=== PATIENT | female | born 1960 | race Caucasian/White ===

== ENCOUNTER 2018-06-21 09:02 | Outpatient (CLI) | payer OTHER, SELFPAY ==
--- NOTE | 2018-06-21 12:55 | W.PREOPHP ---
Date of service: 06/21/18 Assessment and Plan (1) Biceps tendinitis of right shoulder: Current visit: Yes Status: Acute Since Stephanie has failed conservative treatment, she would like to move forward with right shoulder surgery. Likely this will be a biceps tenotomy, as this is discussed with patient versus a tenodesis. She would like to have her downtime at a minimum. There is a possibility of a rotator cuff repair, which will be determined at the time of surgery as far as the extent of the tearing is. Details of surgery were discussed with patient as well as risks, and pertinent anatomy. All questions were answered. (2) Rotator cuff tear, right: Current visit: Yes Status: Acute History of Present Illness Chief Complaint: Right shoulder pain Narrative: Stephanie is a 57-year-old female has been complaining of right shoulder pain for some time now. She states that she has tried conservative measures including physical therapy, but they have not help take care of her pain. 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 Most of her pain occurs not when she reaches for something, but when she retracts her hand from a reaching position. She also states that she has pain whenever she is lifting anything with her hand supinated. She states that when she is transferring her , she does so attempting to lift with her hand supinated and she feels not only pain but some weakness associated with it. She has had an intra-articular injection which helped significantly, but only for a couple of days. Subsequent MRI reveals possibility of a small supraspinatus tear, as well as biceps tendinitis. Since she has failed conservative treatment, care is looking forward to right shoulder arthroscopy with biceps tenotomy. Pertinent Surgical Information Patient denies history of CVA, [place], angina, asthma, COPD, renal or liver disorders, hepatitis, bleeding disorders, diabetes, immune or thyroid disorders. Patient does report presence of a heart murmur. She states that this was diagnosed about 10 years ago, however she had an echocardiogram which she states was normal. She has not had any symptoms from the heart murmur. No dizziness, chest pain, shortness of breath. No complications from anesthesia. Review of Systems Constitutional Denies fever(s) ENT Denies dizziness and Denies sore throat Cardiovascular Denies chest pain, Denies palpitations and Denies dyspnea Respiratory Denies dyspnea Gastrointestinal Denies abdominal pain, Denies melena, Denies hematochezia, Denies diarrhea, Denies nausea and Denies vomiting Genitourinary Denies hematuria and Denies dysuria Neurologic Denies dizziness Endocrine Denies palpitations PFSH Family History Mother Essential hypertension CAD (coronary artery disease) Father CAD (coronary artery disease) Medical History Hyperlipidemia (Acute) Essential hypertension (Acute 07/18/13) Depressive disorder (Acute) Social History Smoking/Tobacco Use Status: Never Surgical History Acromioplasty (07/03/14) Endometrial Ablation Meds Home Medications Medication Instructions Recorded Confirmed Type cholecalciferol (vitamin D3) 1,000 unit PO DAILY 11/07/15 06/21/18 History Atorvastatin Calcium 20 mg PO DAILY #90 tab-cap 04/09/17 06/21/18 Clinic gabapentin 900 mg PO HS #140 tab 06/16/17 06/21/18 Rx escitalopram oxalate [Lexapro] 20 mg PO DAILY #90 tab-cap 11/25/17 06/21/18 Rx hydrochlorothiazide 12.5 mg PO DAILY #90 tab-cap 05/11/18 06/21/18 Rx Allergies Allergy/AdvReac Type Severity Reaction Status Date / Time tree nut Allergy Swelling/Edema, Unverified 06/21/18 09:28 tongue, mouth Exam [facility] Head: normocephalic and atraumatic General nose exam: no nasal discharge Throat: uvula midline and no uvular edema Other: soft palate rises symmetrically, no erythema Eyes Conjunctivae: conjunctivae normal Sclera: sclerae normal Pupils: PERRL Resp Effort & Inspection: normal respiratory effort Auscultation: clear to auscultation bilaterally and no wheezes Cardio Rate: regular rate Rhythm: regular rhythm Heart Sounds: S1 normal, S2 normal and murmur systolic
== END 2018-06-21 09:22 ==
PROVIDERS: PCP Nurse Practitioner Family; Visit Provider Student in an Organized Health Care Education/Training Program
DX: M75.111 Incomplete rotator cuff tear or rupture of right shoulder, not specified as traumatic (principal); M75.21 Bicipital tendinitis, right shoulder; Z01.818 Encounter for other preprocedural examination
CPT/HCPCS: NC

== ENCOUNTER 2018-07-13 07:49 | Day surgery (SDC) | payer OTHER, SELFPAY ==
[2018-07-13] VITALS (7 sets, daily range): BP systolic 139–150; BP diastolic 57–77; PULSE 75–90; RESP 15–19; TEMP 35.6–36.7; O2SAT 95–98
[2018-07-13] MEDS: Lactated Ringers 1,000 ML 80 ML IV ×2 (08:20→11:01)
--- NOTE | 2018-07-13 09:31 | W.PM.DSUDISC ---
Discharge Plan Disposition Patient Disposition: HOME Condition: Good Discharge Details Reason For Visit: Right shoulder arthroscopy Attending Provider: Bowen Laird Primary Care Provider: Clover Hernandes Home Meds and New Rx's Prescriptions: New ibuprofen 600 mg tablet 600 mg PO TID PRNQty: 90 RF: 3 acetaminophen 500 mg capsule 1,000 mg PO Q8H PRN (Reason: pain) Qty: 90 RF: 0 oxycodone 5 mg tablet 5 mg PO Q4H Qty: 15 RF: 0 Continue Atorvastatin Calcium 20 MG tablet 20 mg PO DAILY Qty: 90 RF: 4 gabapentin 600 MG tablet 900 mg PO HS Qty: 140 RF: 4 escitalopram oxalate [Lexapro] 20 MG tablet 20 mg PO DAILY Qty: 90 RF: 3 hydrochlorothiazide 12.5 MG tablet 12.5 mg PO DAILY Qty: 90 RF: 4 amoxicillin-pot clavulanate 875-125 mg tablet 1 tab PO BID Qty: 14 RF: 0 cholecalciferol (vitamin D3) 1,000 UNITS tablet 1,000 unit PO DAILY RF: 0 Discharge Instructions Stand Alone Forms: Hany GRACE)Eitan Shoulder Arthro Equipment/Supplies: Sling Activity:: Activity as Tolerated Remove Dressings/Wound Care:: 72 hours Shower/Bathe:: 72 hours Diet:: As Tolerated Discharge Orders Discharge Orders: Discharge Order (Routine); Ordered 07/13/18 Ordered By: Bowen Laird DS: Diagnosis Discharge Diagnosis (1) Rotator cuff tear, right: Status: Acute (2) Biceps tendinitis of right shoulder: Status: Acute
[2018-07-13] MEDS: Bupivacaine LIPOSOME/PF 133 MG/10 ML VIAL IJ ×2 (09:35→11:08)
[2018-07-13] MEDS: Bupivacaine 0.25% Pres-Free 30 ML VIAL (11:09)
--- NOTE | 2018-07-13 12:21 | ROE_ITS ---
Date of service: 07/13/18 Time of Service: 12:16 Operative Note DATE OF PROCEDURE: 07/13/18 PRE-OP DIAGNOSIS: Right biceps tendinitis, SLAP tear, rotator cuff tendinitis, subacromial im POST-OP DIAGNOSIS: same PROCEDURE: - Extensive debridement of anterior and posterior glenohumeral joint and rotator cuff - Biceps tenotomy - Subacromial Debridement with Acromioplasty SURGEON: Bowen Laird PROGRAM MEDICAL DIRECTOR: Ajit Manuel ANESTHESIA: GETA and regional ESTIMATED BLOOD LOSS: 0 PATHOLOGY: none sent COMPLICATIONS: None Patient was transported to: PACU Patient's condition: stable Indications: I have seen Stephanie in clinic for a painful shoulder. Pathology was confirmed based on MRI and exam findings. Nonoperative measures were exhausted but disability and pain persisted. I discussed shoulder arthroscopy and procedures. I reviewed the risks of the procedures to include, but not limited to, bleeding, infection, pain, stiffness, damage to nerves or vessels, recurrence, hardware failure, blood clot. Despite these risks, the patient elected to proceed. Findings: A diagnostic arthroscopy was performed with the following findings: - Glenohumeral Joint: No significant chondromalacia - Labrum: Severe fraying of the labrum seen from posterior to anterior superiorly. This involved the biceps anchor. - Cuff: Some mild inflammatory changes seen on both the articular and bursal sides. - Biceps: Severe inflammatory changes seen along its course with some partial tearing and tearing at the anchor. - Subacromial: Significant inflammation, intact rotator cuff, downward sloping anterolateral spur Procedure Description: Ernestina greeted in the preoperative holding area where the correct side was identified and marked. The consent was reviewed with the patient and signed. The history and physical was updated. All questions were answered. Stephanie was taken back to the PACU for administration of an intrascalene nerve block. Stephanie was then taken to the operating room. The patient was placed into the supine position on the operating room table. A general anesthetic was administered. Stephanie was then positioned in the beach chair position. All bony prominences were well padded. The head was placed in a foam home visitor home base head start in a neutral position. Prophylactic antibiotics in the form of cefazolin were administered. The right arm/shoulder was then prepped with Chloraprep and draped in a standard fashion with stockinette and shoulder drape. A timeout to confirm correct identity, side and site, procedure, allergies, anesthesia, and medical concerns was performed. The arm was placed into a pneumatic ziegler, SPIDER2. The shoulder arthroscopy was then performed. The glenohumeral joint was injected with 20 cc of normal saline with good flow back. A standard posterior portal was made and the joint was entered atraumatically with a blunt arthroscope. Once inside we had good visualization of the structures of the glenohumeral joint. An anterior portal was established with spinal needle localization. A 6.5 mm cannula was inserted. A probe was then used to perform a diagnostic arthroscopy. There is noted to be no significant cartilage damage of the glenoid humeral joint. The labrum was frayed and torn from posterior to anterior. There were no loose bodies in the inferior pouch. The superior rotator cuff was attached to the tuberosity with only minor inflammatory changes. The biceps tendon was significantly inflamed with some notable partial tearing as well as tearing at its anchor site. The subscapularis partially torn all the articular surface. There majority of the fibers were still attached less tuberosity. The partial tear was debrided down with a shaver. The rotator cuff interval was opened with light cautery. A biceps tenotomy was performed with electrocautery. The labrum was debrided from posterior to anterior both the shaver and electrocautery. The undersurface of the rotator cuff was also debrided down. The arthroscope was then inserted into the subacromial space. The 6.5 mm cannula was placed lateral to the CA ligament. Given that there was no significant tearing of the rotator cuff I went ahead and release the CA ligament off the anterolateral corner of the acromion. A complete bursectomy is performed anteriorly, posteriorly, and laterally with electrocautery and shaver. This had excellent exposure of the rotator cuff. The bursal side rotator cuff was without any significant tearing that was appreciated. There was a large anterolateral spur. Using a spinal needle a lateral portal was established. This became the viewing portal. A 5.0 mm fernando was then inserted from the posterior portal. The anterolateral corner of the acromion was then resected in plane with the posterior slope of the acromion. The scope equipment was removed from the shoulder. Excess fluid was evacuated. The portal sites were closed with 3-0 Monocryl. The wounds were dressed with Steri- Strips, 4 x 4's, ABDs, Medipore tape. A sling was applied. The patient tolerated the procedure well and was returned to the Same Day Surgery area in a stable condition suffering no known complication.
[2018-07-13] MEDS: oxyCODONE 5 MG TAB PO (12:27)
== END 2018-07-13 13:30 | disposition home or self-care (01) ==
PROVIDERS: PCP Nurse Practitioner Family; Visit Provider Student in an Organized Health Care Education/Training Program
PROC: (CPT 29805; principal; 2018-07-13 09:45)
PROC: (CPT 23430; 2018-07-13 09:45)
DX: M75.21 Bicipital tendinitis, right shoulder (principal); M75.111 Incomplete rotator cuff tear or rupture of right shoulder, not specified as traumatic
CPT/HCPCS: 29823; 29826; 76942; J0131; J0690; J1100; J1885; J2250; J2405; J3010; L3670

== ENCOUNTER 2018-08-17 00:40 | Outpatient (CLI) | payer OTHER, SELFPAY ==
--- NOTE | 2018-08-17 08:00 | DI.MAMMO_ITS ---
SYMPTOMS/DIAGNOSIS: SCREENING, Z12.31 BILATERAL SCREENING MAMMOGRAM: Mammograms were interpreted according to the usual protocol including computer analysis with CAD system, tomosynthesis and C view imaging. Comparison is made with exams from 2010 through 2017. The breasts are composed of heterogeneously dense fibroglandular tissue, breast density category C. No suspicious masses or suspicious microcalcifications are seen. There has been no significant change. IMPRESSION: Category 1C, negative mammogram. Yearly screening mammography is recommended. [facility] ASSESSMENT OF FINDINGS: Negative. Category 1. Patient will receive a letter notifying them of these results. Bi-RADS category C. The breasts are heterogeneously dense, which may obscure small masses.
== END 2018-08-17 01:00 ==
PROVIDERS: PCP Nurse Practitioner Family; Visit Provider Nurse Practitioner Family
CPT/HCPCS: 77063; 77067

== ENCOUNTER 2018-11-09 01:01 | Outpatient (CLI) | payer OTHER, SELFPAY ==
[2018-11-09] MEDS: Omnipaque 300 MG/ML 10 ML BTL IJ (08:36)
[2018-11-09] MEDS: Bupivacaine 0.5% Pres-Free 10 ML VIAL 5 ML IJ (08:37)
[2018-11-09] MEDS: methylPREDNISolone ACETATE 80 MG/ML VIAL IM (08:38)
--- NOTE | 2018-11-09 08:40 | DI.RAD_ITS ---
SYMPTOM/DIAGNOSIS: RT ROTATOR CUFF TENDINITIS, S/P ARTHROSCOPY, Z98.890, M75.81, OTHER SHOULDER LESION FLUOROSCOPY RIGHT SHOULDER INJECTION: Fluoroscopy Time: 7.8 sec 0.60 mGy Fluoroscopy was provided for Dr. Laird with guidance with right shoulder injection. Please see procedure note for details.
--- NOTE | 2018-11-09 17:48 | W.PROCNOTE ---
Date of service: 11/09/18 Time of Service: 11:48 Procedure Note Date of procedure: 11/09/18 Procedure: Right Shoulder Injection Surgeon/Proceduralist/Physician: Bowen Laird Procedure Diagnosis: Right shoulder pain Procedure Indications: Stephanie has had persistent pain of the RIGHT shoulder. She has had previous surgery for a labral lesion and biceps tendinitis, but continues have some persistent pain. As a way of hopefully treating this pain I recommended an injection. I had discussed the risks of the procedure and the patient elected to proceed. Procedure Description: Stephanie was greeted in the flouroscopy room. The correct side was identified and the consent was reviewed with the patient and signed. The patient was then placed in the supine position on the fluoroscopy table. The RIGHT shoulder was then prepped with Chloraprep. The anterior injection starting point was identiifed by bony landmarks and fluoroscopy. The skin and soft tissue in the tract of the injection was anesthetized with 1% Lidocaine. A spinal needle was then inserted deep into the shoulder joint at the level of the recess between the glenoid and superior humeral head. A small amount of Omnipaque solution was injected to confirm intraarticular placement. Once confirmed, the shoulder was injected with 4cc of 0.5% Bupivicaine and 80mg of Depo-Medrol. A bandaid was placed on the injection site. The patient tolerated the procedure well and noted improvement in pre-injection pain.
== END 2018-11-09 01:21 ==
PROVIDERS: PCP Nurse Practitioner Family; Visit Provider Student in an Organized Health Care Education/Training Program
DX: M25.511 Pain in right shoulder (principal); M75.81 Other shoulder lesions, right shoulder; Z98.890 Other specified postprocedural states
CPT/HCPCS: 20610; 77002; J1040

== ENCOUNTER 2020-04-02 04:02 | Outpatient (CLI) | payer OTHER, SELFPAY ==
[2020-04-02 09:38] LABS: Anion Gap 6.2 mmol/L (3-11); BUN 11 mg/dL (7-18); CO2 28.8 mmol/L (21.0-32.0); CREATININE 0.68 mg/dL (0.55-1.02); Calcium 9.5 mg/dL (8.5-10.1); Calculated LDL 177 mg/dL (<100); Chloride 105 mmol/L (98-107); Cholesterol 257 mg/dL (<200); Glucose 105 mg/dL (74-106); HDL Cholesterol 55 mg/dL (40-60); Potassium 4.5 mmol/L (3.5-5.1); Sodium 140 mmol/L (136-145); Triglyceride 129 mg/dL (<150)
[2020-04-02 10:07] LABS: Vitamin D 25 Total 16.6 ng/ml (30-100)
== END 2020-04-02 04:22 ==
PROVIDERS: PCP Nurse Practitioner Family; Visit Provider Nurse Practitioner Family
DX: E78.5 Hyperlipidemia, unspecified (principal); E55.9 Vitamin D deficiency, unspecified; R73.03 Prediabetes
CPT/HCPCS: 36415; 80048; 80061; 82306; 83036

== ENCOUNTER 2020-04-09 02:06 | Outpatient (CLI) | payer OTHER, SELFPAY ==
--- NOTE | 2020-04-09 06:45 | DI.MAMMO_ITS ---
EXAM: MAMMO SCREENING CLINICAL HISTORY: screening,Z12.39 TECHNIQUE: Mammograms were interpreted according to the usual protocol including computer analysis w [employer] CAD system, tomosynthesis and C-view imaging. COMPARISON: 2013 through 2017. FINDINGS: The breasts are composed of heterogeneously dense fibroglandular densities, Breast Density category C . No suspicious masses or suspicious microcalcifications are seen. No skin thickening or abnormal axillary lymph nodes are seen. There has been no significant change from prior exams. IMPRESSION: BI-RADS Category 1: Negative mammogram. Yearly screening mammography is recommended. Breast Density Category C, heterogeneously dense tissue which decreases the sensitivity of the mammog ely. The mammogram demonstrates the patient's breast tissue is dense. Dense breast tissue is very common a nd is not abnormal but dense breast tissue can make it harder to find cancer on a mammogram. Also, de nse breast tissue may increase breast cancer risk. This information about the result of the mammogram report was provided to the patient to raise their awareness. Use this report when you speak with the patient about their risks for breast cancer, which includes their family history. At that time, you may recommend additional screening tests (Ultrasound or MRI) as they might be useful based on their r isk. A negative radiographic report should not delay biopsy if a dominant or clinically suspicious mass is present. Up to ten percent of cancers are not identified on mammography. A negative report may reinforce clinical impression. Adenosis and dense breasts may obscure an underlying neoplasm. False positive reports average 6 to 10%.
== END 2020-04-09 02:26 ==
PROVIDERS: PCP Nurse Practitioner Family; Visit Provider Nurse Practitioner Family
DX: Z12.31 Encounter for screening mammogram for malignant neoplasm of breast (principal); R92.2 Inconclusive mammogram
CPT/HCPCS: 77063; 77067

== ENCOUNTER 2020-07-18 06:57 | Day surgery (SDC) | payer OTHER, SELFPAY ==
[2020-07-18 07:01] VITALS: BP 110/68; PULSE 83; RESP 16; TEMP 36; O2SAT 97
[2020-07-18] MEDS: Lactated Ringers 1,000 ML 80 ML IV (07:23)
--- NOTE | 2020-07-18 08:18 | BOWEL_PTH ---
PATIENT: Stephanie Dixon LOC: [facility] U#:[id number] AGE/SX: 59/F ROOM: RE07/18/[address]: Hollie Husain MD : [id number] BED: DIS: 07/18/2020 SPEC #: [id number] RECD: 07/18/20 09:08 STATUS: CARL REUsman #: [id number] SUMIT: 07/18/20 08:[address]: Hollie Husain DEPT: Surgical Specimen RECD BY: Miriam Fong ENTERED: 07/18/20 09:09 SP TYPE: Bowel OTHR DR: SUMI Franz Tissues: 1 - BIOPSY BOWEL Procedures: GROSS AND MICRO LEVEL 4 Comments: [id number] ([id number] [facility] [place]#)
--- NOTE | 2020-07-18 08:38 | W.PM.DSUDISC ---
Discharge Plan Disposition Patient Disposition: HOME Condition: Good Discharge Details Reason For Visit: Colonoscopy Attending Provider: Hollie Huasin Primary Care Provider: Clover Hernandes Home Meds and New Rx's Prescriptions: Continued Adult Probiotic 3 billion cell capsule 3,000 mmu cells PO DAILY RF: 0 lisinopril 10 mg tablet 10 mg PO DAILY Qty: 90 RF: 4 gabapentin 600 mg tablet 900 mg PO HS PRN (Reason: pain) Qty: 140 RF: 4 escitalopram oxalate [Lexapro] 20 mg tablet 20 mg PO DAILY Qty: 90 RF: 4 cholecalciferol (vitamin D3) 25 mcg (1,000 unit) tablet 2,000 unit PO DAILY RF: 0 pravastatin 20 mg tablet 20 mg PO DAILY Qty: 90 RF: 4 Discharge Instructions Additional Instructions: Findings: One tiny polyp was removed from the rectum. My office will send a letter with biopsy results. Follow up: If the polyp is adenomatous, plan for a colonoscopy in 5 years. Please call if you develop: fevers >101.5 Nausea or Vomiting Abdominal pain that is not transient DAY SURGERY UNIT POST COLONOSCOPY INSTRUCTIONS 1. Because there will be medication in your system for the next 24 hours, you may feel a little sleepy. Your coordination will be affected. Therefore: a. Do not drive or operate dangerous equipment for 24 hours. b. Do not drink alcohol beverages for 24 hours (not even beer). c. Plan to go home and rest for the day. 2. Generally there are no restrictions on your activity after a day or so has gone by, but you may feel a bit fatigued for a few days. 3 After you arrive home you may have a light meal and return to a normal diet as you can tolerate it without feeling sick to your stomach. 4. After surgery, you may feel pain or discomfort. This should be only transient, but if it persists please contact your doctor. 5. If there are any questions regarding the findings of your procedure, please feel free to contact your doctor. 6. If you are unable to contact your doctor with a problem, contact the hospital at [phone]. 7. Continue all your regular medications unless directed otherwise. I understand the above instructions and have no questions. Signature of Patient or Responsible Adult Escort Date/Time Name of Responsible Adult Escort Signature of Nurse Date/Time Activity:: Activity as Tolerated Diet:: As Tolerated Discharge Orders Discharge Orders: Discharge Order (Routine); Ordered 07/18/20 Ordered By: Hollie Husain DS: Diagnosis Discharge Diagnosis (1) Rectal polyp: Status: Acute
[2020-07-18 08:57] VITALS: BP 109/74; PULSE 71; RESP 16; TEMP 36.1; O2SAT 99
--- NOTE | 2020-07-20 19:13 | W.COLOREPORT ---
Colonoscopy Report Date of procedure: 07/18/20 Pre-op diagnosis general: Screening Post-op diagnosis procedure note: other (Rectal polyp) Procedure: Colonoscopy with cold forceps polypectomy Surgeon: Hollie Husain Anesthesia proc note operative: MAC Indications: This 59 year old woman presents for screening colonoscopy. Her last one in 2005 was normal. She has no family history of colon cancer or symptoms. Procedure Description: The patient was placed in the left Peralta position. Propofol was titrated to sedation. Digital rectal examination revealed no abnormalities. The scope was advanced to the cecum without difficulty. The ileocecal valve and appendiceal orifice were clearly identified. The prep was good. The scope was slowly withdrawn over the course of greater than 6 minutes with no abnormalities seen in the ascending, transverse, descending, sigmoid colon. A diminuitive, hyperplastic appearing polyp was removed from the rectum with the cold forceps. The rectum was otherwise normal including on retroflexed view. The patient tolerated the procedure well and was stable to recovery. Plan for a colonoscopy in 5 years if the polyp is adenomatous.
== END 2020-07-18 09:35 | disposition home or self-care (01) ==
PROVIDERS: PCP Nurse Practitioner Family; Visit Provider Surgery
PROC: 0DJD8ZZ Inspection of Lower Intestinal Tract, Via Natural or Artificial Opening Endoscopic (ICD-10-PCS; CPT 45378; principal; 2020-07-18 08:15)
DX: Z12.11 Encounter for screening for malignant neoplasm of colon (principal); K62.1 Rectal polyp; I10 Essential (primary) hypertension
CPT/HCPCS: 45380; 88305; J2001

== ENCOUNTER 2020-09-18 02:55 | Outpatient (CLI) | payer OTHER, SELFPAY ==
[2020-09-18 17:02] LABS: Abs Immature Grans 0.02 10^3/uL (0.0-0.06); Absolute Basophil Count 0.04 10^3/uL (0.0-0.2); Absolute Eosinophil Count 0.16 10^3/uL (0.0-0.7); Absolute Lymphocyte Count 2.51 10^3/uL (1.2-3.4); Absolute Monocyte Count 0.64 10^3/uL (0.1-0.8); Absolute Neutrophil Count 3.27 10^3/uL (1.2-6.7); Basophils % 0.6; Eosinophils % 2.4; HCT 37.5 % (36.0-46.0); HGB 12.4 g/dL (11.2-15.7); Immature Grans % 0.3; Lymphocytes % 37.8; MCHC 33.1 % (32.0-36.0); MCV 87.6 fL (80-95); MPV 9.4 fL (8.0-11.0); Monocytes % 9.6; Neutrophils % 49.3; Nucleated RBC 0 %; Platelet Count 281 10^3/uL (130-400); RBC 4.28 10^6/uL (3.93-5.22); RDW 12.2 % (11.7-14.6); RDW-SD 39.4 fL; WBC 6.64 10^3/uL (4.4-10.8)
[2020-09-18 17:26] LABS: Hemoglobin A1C 5.9 % (<5.7)
[2020-09-18 17:36] LABS: Ferritin 118 ng/mL (8-252)
[2020-09-18 17:39] LABS: Vitamin D 25 Total 18.7 ng/ml (30-100)
[2020-09-18 18:17] LABS: Vitamin B12 383 pg/mL (193-986)
[2020-09-18 18:37] LABS: FREE T4 0.61 ng/dL (0.76-1.46)
[2020-09-19 12:14] LABS: Calculated LDL 131 mg/dL (<100); Cholesterol 226 mg/dL (<200); HDL Cholesterol 69 mg/dL (40-60); Triglyceride 130 mg/dL (<150)
[2020-09-19 23:14] LABS: Thyroglobulin Antibody <15 U/mL (<=60); Thyroperoxidase Antibody 171 U/mL (<=60)
== END 2020-09-18 03:15 ==
PROVIDERS: PCP Nurse Practitioner Family; Visit Provider Nurse Practitioner Family
DX: R53.83 Other fatigue (principal); E78.5 Hyperlipidemia, unspecified; R73.03 Prediabetes; E55.9 Vitamin D deficiency, unspecified; R79.89 Other specified abnormal findings of blood chemistry
CPT/HCPCS: 36415; 80061; 82306; 86376; 82607; 82728; 83036; 84439; 84443; 85025

== ENCOUNTER 2020-12-04 16:03 | Outpatient (REF) | payer OTHER, SELFPAY ==
[2020-12-04 14:47] LABS: TSH 1.85 uIU/mL (0.36-3.74)
[2020-12-04 14:57] LABS: Vitamin D 25 Total 24.9 ng/ml (30-100)
[2020-12-04 15:06] LABS: FREE T4 0.73 ng/dL (0.76-1.46)
== END 2020-12-04 16:04 | disposition home or self-care (01) ==
LOC: LBN 16:03
PROVIDERS: PCP Nurse Practitioner Family; Visit Provider Nurse Practitioner Family
DX: E03.9 Hypothyroidism, unspecified (principal); E55.9 Vitamin D deficiency, unspecified
CPT/HCPCS: 82306; 84439; 84443

== ENCOUNTER 2021-04-07 03:33 | Outpatient (CLI) | payer OTHER, SELFPAY ==
[2021-04-07 14:51] LABS: HCT 37.3 % (36.0-46.0); HGB 12.3 g/dL (11.2-15.7); MCH 28.4 pg (27.0-33.0); MCV 86.1 fL (80-95); MPV 8.7 fL (8.0-11.0); Platelet Count 273 10^3/uL (130-400); RBC 4.33 10^6/uL (3.93-5.22); RDW 11.5 % (11.7-14.6); RDW-SD 36.5 fL; WBC 5.32 10^3/uL (4.4-10.8)
[2021-04-07 17:02] LABS: Anion Gap 8.5 mmol/L (3-11); BUN 12 mg/dL (7-18); CO2 30.5 mmol/L (21.0-32.0); CREATININE 0.6 mg/dL (0.55-1.02); Calcium 9.4 mg/dL (8.5-10.1); Chloride 103 mmol/L (98-107); Ferritin 154 ng/mL (8-252); Glucose 106 mg/dL (74-106); Potassium 4.6 mmol/L (3.5-5.1); Sodium 142 mmol/L (136-145); TSH 0.05 uIU/mL (0.36-3.74)
[2021-04-07 17:40] LABS: Vitamin D 25 Total 25.7 ng/mL (30-100)
[2021-04-07 17:56] LABS: FREE T4 0.78 ng/dL (0.76-1.46)
== END 2021-04-07 03:34 | disposition home or self-care (01) ==
LOC: LBO 03:33
PROVIDERS: PCP Nurse Practitioner Family; Visit Provider Nurse Practitioner Family
DX: G47.61 Periodic limb movement disorder (principal); E03.9 Hypothyroidism, unspecified; E55.9 Vitamin D deficiency, unspecified
CPT/HCPCS: 36415; 80048; 82306; 85027; 82728; 84439; 84443

== ENCOUNTER 2021-04-10 07:13 | Outpatient (REF) | payer OTHER, SELFPAY ==
[2021-04-10 16:51] LABS: Ferritin 154 ng/mL (8-252)
== END 2021-04-10 07:14 | disposition home or self-care (01) ==
LOC: LBN 07:13
PROVIDERS: PCP Nurse Practitioner Family; Visit Provider Nurse Practitioner
DX: M25.511 Pain in right shoulder (principal)
CPT/HCPCS: 82728

== ENCOUNTER 2021-05-12 01:11 | Outpatient (CLI) | payer OTHER, SELFPAY ==
--- NOTE | 2021-05-12 08:03 | DI.MAMMO_ITS ---
Exam(s) MAMMO SCREENING EXAM: MAMMO SCREENING CLINICAL HISTORY: screening,Z12.39 TECHNIQUE: Bilateral full field digital CC and MLO mammographic images were obtained with 3D tomosyn thesis and utilizing computer aided detection (CAD). COMPARISON: Available for comparison. FINDINGS: Masses/Architectural Distortion: None seen. Microcalcifications: No suspicious pleomorphic-type are seen. Skin Thickening/Nipple Retraction: None. IMPRESSION: 1. No significant interval change with no specific features of malignancy noted. 2. Unless there is more urgent need, screening mammography is recommended, as per [employer] guidelines. BI-RADS Category 1 - Negative Breast Density - Category C - Heterogeneously dense Breast density category C or D implies that the patient has dense breast tissue. Dense breast tissue is very common and is not abnormal but dense breast tissue can make it harder to find cancer on a ma mmogram. Also, dense breast tissue may increase their breast cancer risk. This information about the result of the mammogram report was provided to the patient to raise their awareness. Use this report when you speak with the patient about their risks for breast cancer, which includes their family hist ory. At that time, you may recommend for more screening tests (Ultrasound or MRI) as they might be us eful based on their risk. A negative radiographic report should not delay biopsy if a dominant or clinically suspicious mass is present. Up to ten percent of cancers are not identified on mammography. A negative report may reinforce clinical impression. Adenosis and dense breasts may obscure an underlying neoplasm. False positive reports average 6 to 10%. Patient will receive a letter notifying them of these results.
== END 2021-05-12 01:31 ==
PROVIDERS: PCP Nurse Practitioner Family; Visit Provider Nurse Practitioner Family
DX: Z12.31 Encounter for screening mammogram for malignant neoplasm of breast (principal)
CPT/HCPCS: 77063; 77067

== ENCOUNTER 2021-05-29 14:54 | Outpatient (REF) | payer OTHER, SELFPAY ==
[2021-05-29 15:29] LABS: FREE T4 0.75 ng/dL (0.76-1.46); TSH 0.74 uIU/mL (0.36-3.74)
== END 2021-05-29 14:55 | disposition home or self-care (01) ==
LOC: NCHCN 14:54
PROVIDERS: PCP Nurse Practitioner Family; Visit Provider Nurse Practitioner Family
DX: E03.8 Other specified hypothyroidism
CPT/HCPCS: 84439; 84443

== ENCOUNTER 2021-08-19 10:51 | Outpatient (REF) | payer OTHER, SELFPAY | END 2021-08-19 10:52 | disposition home or self-care (01) | LOC: LBN 10:51 | PROVIDERS: PCP Nurse Practitioner Family; Visit Provider Family Medicine | DX: J02.9 Acute pharyngitis, unspecified (principal) | CPT/HCPCS: 87070 ==

== ENCOUNTER → 2022-05-27 01:32 | Outpatient (CLI) | payer OTHER, SELFPAY ==
--- NOTE | 2022-05-27 08:00 | DI.MAMMO_ITS ---
Exam(s) MAMMO SCREENING EXAM: MAMMO SCREENING CLINICAL HISTORY: screening,z12.39 TECHNIQUE: Bilateral full field digital CC and MLO mammographic images were obtained with 3D tomosyn thesis and utilizing computer aided detection (CAD). COMPARISON: Available for comparison. FINDINGS: Masses/Architectural Distortion: None seen. Microcalcifications: No suspicious pleomorphic-type are seen. Skin Thickening/Nipple Retraction: None. IMPRESSION: 1. No significant interval change with no specific features of malignancy noted. 2. Unless there is more urgent need, screening mammography is recommended, as per [employer] guidelines. BI-RADS Category 1 - Negative Breast Density - Category C - Heterogeneously dense Breast density category C or D implies that the patient has dense breast tissue. Dense breast tissue is very common and is not abnormal but dense breast tissue can make it harder to find cancer on a ma mmogram. Also, dense breast tissue may increase their breast cancer risk. This information about the result of the mammogram report was provided to the patient to raise their awareness. Use this report when you speak with the patient about their risks for breast cancer, which includes their family hist ory. At that time, you may recommend for more screening tests (Ultrasound or MRI) as they might be us eful based on their risk. A negative radiographic report should not delay biopsy if a dominant or clinically suspicious mass is present. Up to ten percent of cancers are not identified on mammography. A negative report may reinforce clinical impression. Adenosis and dense breasts may obscure an underlying neoplasm. False positive reports average 6 to 10%. Patient will receive a letter notifying them of these results.
== END ==
PROVIDERS: PCP Nurse Practitioner Family; Visit Provider Nurse Practitioner Family
DX: Z12.31 Encounter for screening mammogram for malignant neoplasm of breast (principal)
CPT/HCPCS: 77063; 77067

== ENCOUNTER 2022-06-02 10:17 | Outpatient (REF) | payer OTHER, SELFPAY ==
[2022-06-02 12:02] LABS: Anion Gap 6.5 mmol/L (3-11); BUN 15 mg/dL (7-18); CO2 31.5 mmol/L (21.0-32.0); CREATININE 0.7 mg/dL (0.55-1.02); Calcium 9.2 mg/dL (8.5-10.1); Calculated LDL 105 mg/dL (<100); Chloride 102 mmol/L (98-107); Cholesterol 186 mg/dL (<200); Creatine Kinase 60 U/L (26-192); Estimated GFR 99.57 (mL/min/1.73m2); Glucose 110 mg/dL (74-106); HDL Cholesterol 58 mg/dL (40-60); Magnesium 1.9 mg/dL (1.8-2.4); Potassium 4.6 mmol/L (3.5-5.1); Sodium 140 mmol/L (136-145); TSH 1.18 uIU/mL (0.36-3.74); Triglyceride 116 mg/dL (<150)
[2022-06-02 12:20] LABS: FREE T4 0.79 ng/dL (0.76-1.46)
== END 2022-06-02 10:18 | disposition home or self-care (01) ==
LOC: LBN 10:17
PROVIDERS: PCP Nurse Practitioner Family; Visit Provider Nurse Practitioner Family
DX: E78.5 Hyperlipidemia, unspecified (principal); R73.03 Prediabetes; E03.9 Hypothyroidism, unspecified; M79.10 Myalgia, unspecified site; R25.2 Cramp and spasm; I10 Essential (primary) hypertension
CPT/HCPCS: 80048; 80061; 82550; 83036; 83735; 84439; 84443

== ENCOUNTER → 2023-06-01 01:07 | Outpatient (CLI) | payer OTHER, SELFPAY ==
--- NOTE | 2023-06-01 07:30 | DI.MAMMO_ITS ---
Exam(s) MAMMO SCREENING EXAM: MAMMO SCREENING CLINICAL HISTORY: screening,z12.39 TECHNIQUE: Mammograms were interpreted according to the usual protocol including computer analysis w [employer] CAD system, tomosynthesis and C-view imaging. COMPARISON: 2013 through 2021 FINDINGS: The breasts are composed of heterogeneously dense fibroglandular densities, Breast Density category C . No suspicious masses or suspicious microcalcifications are seen. No skin thickening or abnormal axillary lymph nodes are seen. There has been no significant change from prior exams. IMPRESSION: BI-RADS Category 1, Negative mammogram. Yearly screening mammography is recommended. Breast Density Category C, heterogeneously Dense. The mammogram demonstrates the patient's breast tissue is dense. Dense breast tissue is very common a nd is not abnormal but dense breast tissue can make it harder to find cancer on a mammogram. Also, de nse breast tissue may increase breast cancer risk. This information about the result of the mammogram report was provided to the patient to raise their awareness. Use this report when you speak with the patient about their risks for breast cancer, which includes their family history. At that time, you may recommend additional screening tests (Ultrasound or MRI) as they might be useful based on their r isk. A negative radiographic report should not delay biopsy if a dominant or clinically suspicious mass is present. Up to ten percent of cancers are not identified on mammography. A negative report may reinforce clinical impression. Adenosis and dense breasts may obscure an underlying neoplasm. False positive reports average 6 to 10%.
== END ==
PROVIDERS: PCP Nurse Practitioner Family; Visit Provider Nurse Practitioner Family
DX: Z12.31 Encounter for screening mammogram for malignant neoplasm of breast (principal)
CPT/HCPCS: 77063; 77067

== ENCOUNTER 2023-06-01 10:33 | Outpatient (REF) | payer OTHER, SELFPAY ==
--- NOTE | 2023-06-01 09:20 | PAPFT_PTH ---
PATIENT: Stephanie Dixon LOC: [facility] U#:[id number] AGE/SX: 62/F ROOM: RE06/01/[address]: Naima Mcgee NP : 1960 BED: DIS: 06/01/2023 SPEC #: [id number] RECD: 06/01/23 13:08 STATUS: CARL REUsman #: [id number] SUMIT: 06/01/23 09:[address]: Everardo NORMAN,Naima DEPT: [facility] Cytology RECD BY: Beverly Lucas ENTERED: 06/01/23 13:08 SP TYPE: PAPFT OTHR DR: Clover Hernandes, SMUI Tissues: 1 - CX/ENDOCX FOR PAP SMEARS Procedures: PAP THIN PREP/UVM Screening HPV DNA PROBE Comments: [id number]
== END 2023-06-01 10:34 | disposition home or self-care (01) ==
LOC: LBN 10:33
PROVIDERS: PCP Nurse Practitioner Family; Visit Provider Nurse Practitioner Women's Health
DX: Z12.4 Encounter for screening for malignant neoplasm of cervix (principal); Z11.51 Encounter for screening for human papillomavirus (HPV)
CPT/HCPCS: 88142; 87624

== ENCOUNTER 2023-07-21 10:00 | Outpatient (REF) | payer OTHER, SELFPAY ==
[2023-07-21 14:07] LABS: Hemoglobin A1C 6.2 % (<5.7)
[2023-07-21 14:16] LABS: Anion Gap 8.3 mmol/L (3-11); BUN 11 mg/dL (7-18); CO2 28.7 mmol/L (21.0-32.0); CREATININE 0.7 mg/dL (0.55-1.02); Calcium 9.6 mg/dL (8.5-10.1); Calculated LDL 176 mg/dL (<100); Chloride 102 mmol/L (98-107); Cholesterol 258 mg/dL (<200); Estimated GFR 98.95 (mL/min/1.73m2); Glucose 106 mg/dL (74-106); HDL Cholesterol 67 mg/dL (40-60); Potassium 4.8 mmol/L (3.5-5.1); Sodium 139 mmol/L (136-145); TSH (W/Ref FT4) 3.27 uIU/mL (0.36-3.74); Triglyceride 79 mg/dL (<150)
[2023-07-21 14:50] LABS: Vitamin D 25 Total 17.5 ng/mL (30-100)
== END 2023-07-21 10:01 | disposition home or self-care (01) ==
LOC: LBN 10:00
PROVIDERS: PCP Nurse Practitioner Family; Visit Provider Nurse Practitioner Family
DX: Z00.00 Encounter for general adult medical examination without abnormal findings (principal)
CPT/HCPCS: 80048; 80061; 82306; 83036; 84443

== ENCOUNTER 2024-08-28 14:55 | Outpatient (REF) | payer OTHER, SELFPAY ==
[2024-08-28 12:15] LABS: Hemoglobin A1C 6.1 % (<5.7)
[2024-08-28 12:37] LABS: ALT 19 U/L (14-59); AST 14 U/L (15-37); Albumin 4.2 g/dL (3.4-5.0); Alkaline Phosphatase 81 U/L (46-116); BUN 14 mg/dL (7-18); Bilirubin, Total 0.37 mg/dL (0.2-1.0); CREATININE 0.8 mg/dL (0.55-1.02); Calcium 9.3 mg/dL (8.5-10.1); Calculated LDL 81 mg/dL (<100); Chloride 106 mmol/L (98-107); Cholesterol 179 mg/dL (<200); Estimated GFR 83.26 (mL/min/1.73m2); Glucose 120 mg/dL (74-106); HDL Cholesterol 76 mg/dL (40-60); Potassium 4.4 mmol/L (3.5-5.1); Sodium 141 mmol/L (136-145); TSH (W/Ref FT4) 1.33 uIU/mL (0.36-3.74); Total Protein 7.1 g/dL (6.4-8.2); Triglyceride 110 mg/dL (<150)
[2024-08-28 19:20] LABS: HBs Antibody, Quant 61.6 mIU/mL (See Note); Hep B Surface Ab Positive (See Note); Hepatitis B Core Antibody Negative (Negative); Hepatitis B Surface Antigen Negative (Negative)
[2024-08-28 19:22] LABS: Hepatitis C Ab w Rflx HCV PCR Negative (Negative)
[2024-08-28 19:28] LABS: HIV-1/2 Ag & Ab Screen Negative (Negative)
== END 2024-08-28 14:56 | disposition home or self-care (01) ==
LOC: LBN 14:55
PROVIDERS: PCP Nurse Practitioner Family; Visit Provider Nurse Practitioner Family
DX: Z11.59 Encounter for screening for other viral diseases (principal); G47.33 Obstructive sleep apnea (adult) (pediatric); R73.03 Prediabetes; E03.8 Other specified hypothyroidism; E06.3 Autoimmune thyroiditis; I10 Essential (primary) hypertension; E78.5 Hyperlipidemia, unspecified; Z11.4 Encounter for screening for human immunodeficiency virus [HIV]
CPT/HCPCS: 80053; 80061; 82306; 86704; 86706; 86803; 87340; 87389; 83036; 84443

== ENCOUNTER 2024-09-10 01:27 | Outpatient (CLI) | payer OTHER, SELFPAY ==
--- NOTE | 2024-09-10 06:30 | DI.RAD_ITS ---
Exam(s) XR KNEE LT 3V AP,LAT,JL EXAM: XR KNEE LT 3V AP,LAT,JL CLINICAL HISTORY: left knee pain,m25.562. TECHNIQUE: 2D digital imaging was performed. COMPARISON: No exams were available for comparison FINDINGS: 3 views No evidence of acute fracture or prominent joint effusion. No degenerative narrowing. No osteophyte s. No chondrocalcinosis. Bone density is normal. No osseous lesions. No osteochondral defects. IMPRESSION: No significant radiograph findings on these three views of the left knee. DATA REPOSITORY: RADIATION DOSE DELIVERED:
--- NOTE | 2024-09-10 08:30 | DI.US_ITS ---
APPROVED REPORT EXAM: Comprehensive 2D, Doppler, and color-flow Echocardiogram Patient Location: Out-Patient Supervisor Instrument Repair: Danyelle Gee RDCS (AE) Indications: Reassess mitral regurgitation Other Information Study Quality: Good Conclusion Normal left ventricular wall thickness and chamber size. Ejection fraction is 57%. Wall motion is n ormal Normal right ventricular size and function Both atria are normal in size There are no structural valvular abnormalities Estimated right ventricular systolic pressure is 24 mmHg There is trace to mild mitral regurgitation Wall motion Left Ventricle The left ventricle is normal size. The left ventricular systolic function is normal. The left ventric ular ejection fraction is within the normal range. There is normal left ventricular wall thickness. T here is normal LV segmental wall motion. There is no ventricular septal defect visualized. LVEF is 57 %. Right Ventricle The right ventricle is normal size. The right ventricular systolic function is normal. Atria The left atrium size is normal. The right atrium size is normal. The interatrial septum is intact wit h no evidence for an atrial septal defect. Aortic Valve The aortic valve is normal in structure. Aortic valve is trileaflet. There is no aortic valvular sten osis. No aortic regurgitation is present. Mitral Valve The mitral valve is normal in structure. No evidence of mitral valve stenosis. Trace to mild mitral r egurgitation. Tricuspid Valve The tricuspid valve is normal in structure. There is no tricuspid valve stenosis. Trace tricuspid reg urgitation. The RVSP is 24.4_ mmHg. Pulmonic Valve The pulmonary valve is normal in structure. There is no pulmonic valvular stenosis. Trace pulmonic re gurgitation. Great Vessels The aortic root is normal in size. The ascending aorta is normal in size. Aortic arch is normal in c aliber. IVC is normal in size and collapses >50% with inspiration. Pericardium There is no pericardial effusion. 2D Dimensions IVSD d PLAX 0.75 cm F: 0.6-1.0 Ao Root d 3.00 cm F: 2.7 - 3.3 LVPW d PLAX 0.78 cm F: 0.6 - 1.0 Ao Asc Diam d 2.79 cm F: 2.3 - 3.1 LVID d PLAX 4.24 cm F: 3.8 - 5.2 LVDs 2.95 cm F: 2.2 - 3.5 LV EF Teichholz 58.1 % FS 30.33 % LV EDV (Teich) 80.3 mL LV ESV (Teich) 33.7 mL M-Mode TAPSE 1.99 cm (M/F) >1.7 Auto EF LV EDV A4C 89.2 mL LV EDV A2C 86.2 mL LV EDV BP 89.4 mL LV ESV A4C 37.6 mL LV ESV A2C 37.1 mL LV ESV BP 38.1 mL LVEF(%) A4C 57.8 % LVEF(%) A2C 57.0 % LVEF(%) BP 57.4 % LV SV A4C 51.6 ml LV SV A2C 49.1 ml LV SV BP 51.3 ml LV CO A4C 3.4 L/min LV CO A2C 3.3 L/min LV CO BP 3.3 L/min HR A4C 64.96 BPM HR A2C 68.18 BPM LV EDV Index (BP) LA Volume LA Length A4C 3.9 cm LA Length A2C 4.2 cm LA Area A4C s 12.51 cm2 LA Area A2C s 12.46 cm2 LA Vol A4C A-L 34.01 mL LA Vol A2C A-L 31.08 mL LA Vol Biplane A-L 33.9 mL LA Vol/BSA A4C A-L LA Vol/BSA A2C A-L LA Vol/BSA BP A-L 20.4 mL/m2 LA Vol A4C MOD 32.7 mL LA Vol A2C MOD 29.3 mL LA Vol BP MOD 32.2 mL RA Volume RA Area A4C 8.2 cm2 RA ESV A4C (A-L) 14.5mL RA Vol/BSA A4C A-L RA Length A4C 3.9 cm RA ESV A4C (MOD) 13.5mL LV Diastology MV E' medial 0.067 (>0.07 m/s) MV E Vmax 0.93 (0.4-1.3 m/s) MV E/E' MED 13.93 (<14) MV A Vmax 0.85 (0.4-1.3 m/s) MV E' lateral 0.118 (>0.1 m/s) E/A Ratio 1.1 MV E/E' LAT 7.91 (<14) MV E' Average 0.092 m/s MV E/E'(average) 10.09 Aortic Valve AoV Vmax 1.12 m/s LVOT Vmax 0.88 m/s AoV Peak Grad 5.1 mmHg LVOT Peak Grad 3.1 mmHg AoV Area (Vmax) 2.40 cm2 LVOT VTI 0.199 m AoV VTI 0.281 m LVOT Mean Grad 1.7 mmHg AoV Mean [place]. 0.79 m/s LVOT SV 61.32 mL AoV Mean Grad 2.9 mmHg LVOT Diam s 1.95 cm AoV Area (VTI) 2.18 cm2 AV Regurg Peak Gr. 5.06 mmHg Velocity Ratio 0.79 Mitral Valve MV DT 164 (160-240 msec) MV Vmax TIPS 0.94 m/s MV Mean Grad 1.5 (<2mmHg) MV VTI 0.291 m Pulmonary Valve PV Vmax 0.90 (0.5-1.5 m/s) RVOT Vmax 0.78 m/s PV Peak Grad 3.3 mmHg RVOT Peak Gr. 2.5 mmHg PV Mean Salvador 0.67 m/s RVOT VTI 0.179 m PV Mean Grad 2.0 mmHg RVOT Mean Gr. 1.4 mmHg Tricuspid Valve RA Pressure 3.00 mmHg TR Vmax 2.31 m/s TV S' 0.12 m/s TR Peak Grad 21.3 mmHg RVSP (TR) 24.4 mmHg
== END 2024-09-10 01:47 ==
LOC: DI 01:27
PROVIDERS: PCP Nurse Practitioner Family; Visit Provider Nurse Practitioner Family
DX: I34.0 Nonrheumatic mitral (valve) insufficiency (principal); M25.562 Pain in left knee
CPT/HCPCS: 73562; 93306

== ENCOUNTER 2024-09-19 02:05 | Outpatient (CLI) | payer OTHER, SELFPAY ==
--- NOTE | 2024-09-19 08:38 | DI.MAMMO_ITS ---
Exam(s) MAMMO SCREENING EXAM: MAMMO SCREENING CLINICAL HISTORY: screening,Z12.39 TECHNIQUE: Bilateral full field digital CC and MLO mammographic images were obtained with 3D tomosyn thesis and utilizing computer aided detection (CAD). COMPARISON: Available for comparison. FINDINGS: Masses/Architectural Distortion: None seen. Microcalcifications: No suspicious pleomorphic-type are seen. Skin Thickening/Nipple Retraction: None. IMPRESSION: 1. No significant interval change with no specific features of malignancy noted. 2. Unless there is more urgent need, screening mammography is recommended, as per [employer] guidelines. BI-RADS Category 1 - Negative Breast Density - Category C - Heterogeneously dense Breast density category C or D implies that the patient has dense breast tissue. Dense breast tissue is very common and is not abnormal but dense breast tissue can make it harder to find cancer on a ma mmogram. Also, dense breast tissue may increase their breast cancer risk. This information about the result of the mammogram report was provided to the patient to raise their awareness. Use this report when you speak with the patient about their risks for breast cancer, which includes their family hist ory. At that time, you may recommend for more screening tests (Ultrasound or MRI) as they might be us eful based on their risk. A negative radiographic report should not delay biopsy if a dominant or clinically suspicious mass is present. Up to ten percent of cancers are not identified on mammography. A negative report may reinforce clinical impression. Adenosis and dense breasts may obscure an underlying neoplasm. False positive reports average 6 to 10%. Patient will receive a letter notifying them of these results.
== END 2024-09-19 02:25 ==
LOC: DI 02:05
PROVIDERS: PCP Nurse Practitioner Family; Visit Provider Nurse Practitioner Family
DX: Z12.31 Encounter for screening mammogram for malignant neoplasm of breast (principal); R92.333 Mammographic heterogeneous density, bilateral breasts
CPT/HCPCS: 77063; 77067

== ENCOUNTER 2025-01-16 00:47 | Outpatient (CLI) | payer OTHER, SELFPAY ==
--- NOTE | 2025-01-16 06:15 | DI.MRI_ITS ---
Exam(s) MR LOWER JOINT LT WO EXAM: MR LOWER JOINT LT WO CLINICAL HISTORY: ? meniscus tear,pain,swelling lt knee, m25.562.m25.462. TECHNIQUE: Multiplanar multisequence MRI was performed. COMPARISON: CR XR KNEE LT 3V AP,LAT,JL from 09/10/2024 FINDINGS: BONES: There is no fracture or contusion pattern. JOINTS: A small joint effusion is present. Articular cartilage: Patellofemoral joint: Articular cartilage is unremarkable. Medial femoral tibial joint: Articular cartilage is unremarkable. Lateral femoral tibial joint: Articular cartilage is unremarkable. LIGAMENTS/TENDONS: Anterior Cruciate: Unremarkable. Posterior Cruciate: Unremarkable. Medial Collateral:Unremarkable. Lateral Collateral ligament complex: Unremarkable. Extensor mechanism: Unremarkable. Medial retinaculum: Unremarkable. Lateral retinaculum: Unremarkable. Popliteus: Unremarkable. MENISCI: The medial meniscus shows small amount of intrasubstance signal, likely representing degenerative sig nal changes. No discrete tear is present. The lateral meniscus is unremarkable. MUSCLES: Unremarkable. SOFT TISSUES: Unremarkable. IMPRESSION: Small joint effusion. No evidence of ligament or meniscal tear. No focal cartilage defects or signi ficant cartilage irregularity. DATA REPOSITORY:
== END 2025-01-16 01:07 ==
LOC: DI 00:47
PROVIDERS: PCP Nurse Practitioner Family; Visit Provider Nurse Practitioner Family
DX: M25.562 Pain in left knee (principal); M25.462 Effusion, left knee
CPT/HCPCS: 73721

== ENCOUNTER 2025-08-14 11:02 | Outpatient (REF) | payer OTHER, SELFPAY | END 2025-08-14 11:03 | disposition home or self-care (01) | LOC: LBN 11:02 | PROVIDERS: PCP Nurse Practitioner Family; Visit Provider Physician Assistant | DX: J02.9 Acute pharyngitis, unspecified (principal) | CPT/HCPCS: 87077; 87070 ==

== ENCOUNTER 2025-09-11 08:58 | Outpatient (CLI) | payer OTHER, SELFPAY ==
--- NOTE | 2025-09-11 08:45 | RT.EKG_ITS ---
APPROVED REPORT Exam: Resting ECG Reason for Exam: Depression and anxiety Patient Location: O HR:64 bpm ECG Measurements Heart Rate 64 AXIS AR 177 P 66 QRSd 101 QRS 55 QT 412 T 50 QTc 425 Conclusion Sinus rhythm...normal P axis, V-rate 50- 99 Normal Electrocardiogram
== END 2025-09-11 08:59 | disposition home or self-care (01) ==
LOC: DI.CM 08:59
PROVIDERS: PCP Nurse Practitioner Family; Visit Provider Nurse Practitioner Family
DX: F41.1 Generalized anxiety disorder (principal)
CPT/HCPCS: 93010